=== PATIENT | female | born 2005 | race Two or more races ===

== ENCOUNTER 2024-08-08 10:00 | Emergency (ER) | payer MEDICAID, OTHER ==
[~2024-08-08] VITALS: Ht 149.9 cm; Wt 40.8 kg
[2024-08-08 11:43] LABS: Urine Bacteria None Seen /hpf (None Seen)
[2024-08-08 12:16] LABS: Urine Blood Negative /uL (Negative); Urine Clarity Clear (Clear); Urine Color Yellow (Yellow); Urine Mucus FEW (None Seen); Urine Protein, UAD TRACE (Negative); Urine Specific Gravity 1.025 (1.001-1.035); Urine Squamous Epithelial Cell FEW /hpf (<5); Urine Urobilinogen Normal (Negative); Urine WBC 1 /hpf (0 - 5)
[2024-08-08] MEDS: SODIUM CHLORIDE 0.9% 1,000 ML IV ONE (12:42)
--- NOTE | 2024-08-08 12:43 | ED.PDOC ---
History of Present Illness HPI Comments 18 y/o F presents with c/o abdominal cramping pain, nausea, and intermittent headache, today. Patient comments on learning she was , recently, and came to the ED, today, out of concern for symptoms she endorses on having, lately. She comments on on this being her 2nd ([id number]) and LMP on . 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 She denies having any current [employer] in addition to having any abnormal vaginal bleeding, dizziness, vomiting, or other associated symptoms or modifiers at this time. Chief Complaint: Time Seen by MD: 12:30 Primary Care Provider: MICHAEL JENSEN Allergies: Coded Allergies: NO KNOWN ALLERGIES (Unverified , 08/08/24) Mode of Arrival: Ambulatory Physical Exam General Appearance: Moderate Distress HEENT: Normal ENT Inspection, Pharynx Normal, TMs Normal Neck: Full Range of Motion, Non-Tender, Normal, Normal Inspection Respiratory: Chest Non-Tender, Lungs Clear, No Accessory Muscle Use, No Respiratory Distress, Normal Breath Sounds Cardiovascular: No Edema, No JVD, No Murmur, No Gallop, Normal Peripheral Pulses, Regular Rate/Rhythm Breast Exam: Deferred Gastrointestinal: No Organomegaly, Non Tender, No Pulsatile Mass, Normal Bowel Sounds, Soft Genitalia: Deferred Pelvic: Deferred Rectal: Deferred Extremities: No calf tenderness, Normal capillary refill, Normal inspection, Normal range of motion, Non-tender, No pedal edema Musculoskeletal : Apperance: Normal Neurologic: Alert, ostomy rn II-XII nml as Tested, No Motor Deficits, Normal Affect, Normal Mood, No Sensory Deficits Cerebellar Function: Normal Reflexes: Normal Skin: Dry, Normal Color, Warm Peripheral Pulses: 3+ Radial (R), 3+ Radial (L) Lymphatic: No Adenopathy Was a procedure done? Was a procedure done?: No Differential Dx Considerations may include: Normal Anxiety X-Ray, Labs, Meds, VS Vital Signs Date Time Temp Pulse Resp B/P (MAP) Pulse Ox O2 Delivery O2 Flow Rate FiO2 08/08/24 15:23 98.3 71 18 100/58 (72) 97 98.3 08/08/24 10:56 74 17 96 Room Air 08/08/24 10:56 98.4 74 17 101/70 (80) 96 98.4 08/08/24 10:05 98.5 85 20 128/70 (89) 98 Lab Test 08/08/24 13:22 08/08/24 10:30 Range/Units Beta HCG, Quantitative 64499.8 H 1.5-4.2 mIU/mL Urine Color Yellow Yellow Urine Clarity Clear Clear Urine pH 7.0 5.0-9.0 Urine Specific [place] 1.025 1.001-1.035 Urine Protein Trace H Negative Urine Ketones 1+ H Negative Urine Blood Negative Negative /uL Urine Nitrite Negative Negative Urine Bilirubin Negative Negative Urine Urobilinogen Normal Negative mg/dL Urine Leukocyte Esterase Negative Negative /uL Urine RBC 1 0 - 4 /hpf Urine WBC 1 0 - 5 /hpf Urine Squamous Epithelial Cells Few <5 /hpf Urine Bacteria None seen None Seen /hpf Urine Mucus Few None Seen Urine Glucose Normal Normal mg/dL Urine Test Positive Negative Current Medications Medications (Trade) Dose Ordered Sig/Amanda Route Start Time Stop Time Status Last Admin Sodium Chloride 1,000 ml @ 1,000 mls/hr Q1H ONCE IV 08/08/24 12:30 08/08/24 13:29 DC 08/08/24 12:42 Patient alert. Complaining of spotting. Vitals stable. Answering all questions. Abdomen is soft. No sign of distress. Ultrasound reveals normal . Urinalysis does not show any infection. Ketones. Establish intravenous access. Was given fluids. Was told to take her vitamins. Was told to follow up with her primary care physician. Was told to come back if there is any problem. Satisfied with the treatment plan. Time of 1ST Reevaluation: 15:09 Reevaluation 1ST: Improved Patient Education/Counseling: Diagnosis, Treatment, Prognosis, Need For Follow Up Family Education/Counseling: No Family Present Departure 1 Departure Time of Disposition: 15:11 Impression: Primary Impression: Normal Qualified Codes: Z34.90 - Encounter for supervision of normal , unspecified, unspecified trimester Additional Impression: Dehydration Disposition: 01 HOME / SELF CARE / HOMELESS Condition: Good Discharged With: Self Critical Care Note Critical Care Time?: No Stability Stability form required: No Heart Score Heart Score: Heart Score Response (Comments) Value History N/A 0 EKG N/A 0 Age N/A 0 Risk Factors N/A 0 Troponin N/A 0 Total 0 I personally scribed for JEYSON FRANCIS MD ([email or web address]) on 08/08/24 at 12:43. Electronically submitted by Aly Roca [email or web address]). JEYSON FRANCIS MD Aug 08, 2024 12:43
--- NOTE | 2024-08-08 13:33 | DVH ---
OB ULTRASOUND <14 WEEKS: HISTORY: cramping TECHNIQUE: Multiple real-time grayscale sonographic images of the pelvis with duplex Doppler color f low, spectral and M-mode analysis. TRANSDUCERS: Transabdominal and transvaginal COMPARISON: None FINDINGS: The uterus measures 7.4 x 6.1 x 5.2 cm The cervix is not visualized Right ovary measures 3.5 x 2.2 x 2.1 cm with normal Doppler color flow. Mixed echogenic structure is present in the right ovary measuring 2.0 cm possibly representing an endometrioma or hemorrhagic cyst . Left ovary measures 2.6 x 1.2 x 1.5 cm with normal Doppler color flow. IUP single fetus at 6 weeks and 0 days average ultrasound age based on mean crown-rump length of 0.3 cm and gestational sac size of 1.7 cm heart rate detected at 100 beats per minute. Yolk sac is subjectively within normal limits. Amniotic fluid unremarkable Kristen-gestational space: Subchorionic hematoma is present measuring 0.6 cm. IMPRESSION: IUP single live fetus 6 weeks and 0 days AUA corresponding to an AC of 04/03/2025. Small subchorionic hematoma is present measuring 0.6 cm. Close clinical and sonographic follow-up adv ised.
[2024-08-08 15:23] VITALS: BP 100/58; PULSE 71; RESP 18; TEMP 98.3; O2SAT 97
== END 2024-08-08 15:24 | disposition home or self-care (01) ==
LOC: ER 10:00
DX: O26.891 Other specified pregnancy related conditions, first trimester (principal); R10.2 Pelvic and perineal pain; E86.0 Dehydration; Z3A.01 Less than 8 weeks gestation of pregnancy
CPT/HCPCS: 36415; 76801; 76817; 81001; 81025; 84702; 96360; 99284; J7030